=== PATIENT | male | born 1935 | race Caucasian/White ===

== ENCOUNTER 2017-10-26 07:23 | Inpatient (IN) | payer MEDICARE, BC ==
[2017-10-26] VITALS (14 sets, daily range): BP systolic 82–141; BP diastolic 52–66; PULSE 72–104; RESP 16–20; TEMP 97.9–99.2; O2SAT 93–97
[~2017-10-26] VITALS: Ht 182.9 cm; Wt 91.9 kg
[~2017-10-26 07:23] MED LIST: ALLO300T2 PO; APIX5TAB PO; ASPI-99 PO; LIPI20TA PO; LORTA5 PO; METO50CR PO
[2017-10-26] MEDS ORDERED: APIX5TAB PO (07:40)
[2017-10-26] MEDS ORDERED: ALLO100T PO (07:40)
[2017-10-26] MEDS ORDERED: ASPI-147 PO (07:40)
[2017-10-26] MEDS ORDERED: ATOR20TA15 PO (07:40)
[2017-10-26] MEDS ORDERED: METO1TAB9 PO (07:40)
[2017-10-26] MEDS ORDERED: CORICAP PO (08:02)
--- NOTE | 2017-10-26 08:25 | RADRPT ---
EXAM DATE/TIME: 10/26/2017 07:59 [place] COMPARISON: CHEST SINGLE AP, April 21, 2013, 14:33. INDICATIONS : Cough, fever, short of breath, headache, chest pains with cough MEDICAL HISTORY : None. SURGICAL HISTORY : None. ENCOUNTER: Initial ACUITY: 4 - 6 days PAIN SCORE: 8/10 LOCATION: Bilateral chest FINDINGS: There is elevation of the left hemidiaphragm which is new as compared to the prior exam. The lungs ar e clear. Heart size appears normal. Pulmonary vasculature is normal in caliber. Osseous structures ar e unremarkable. CONCLUSION: No elevation of the left hemidiaphragm. Otherwise unremarkable exam.. Vi Alfredo MD on October 26, 2017 at 8:22 Board Certified Radiologist. This report was verified electronically.
--- NOTE | 2017-10-26 08:43 | PD ---
HPI Chief Complaint: Cold / Flu Symptoms Time Seen by Provider: 08:30 Travel History International Travel<30 days: No Contact w/Intl Traveler<30days: No Traveled to known affect area: No History of Present Illness HPI 82-year-old male complains of generalized malaise and weakness, coughing congestion and wheezing. Patient states that the symptoms started 2 days ago. Patient states that he has intermittent fever for the past 2 days. Patient states that he has productive cough for the past 2 days. Patient feeling chest tightness and wheezing and shortness of breath. Patient has history of COPD. Patient states that he has been eating well. Patient has history of atrial fibrillation and on Eliquis. Patient also has history of hyperlipidemia, esophageal stricture, CAD status post stent placement. Patient states that he was feeling dizzy this morning. PFSH Past Medical History Hx Anticoagulant Therapy: Yes Atrial Fibrillation: Yes Cancer: Yes (poss left lower lung) Cardiovascular Problems: Yes High Cholesterol: Yes Diabetes: No Diminished Hearing: No Endocrine: No Gastrointestinal Disorders: Yes (reflux hx of esophageal stricture) Gout: Yes Genitourinary: No Hepatitis: Yes (A) Hiatal Hernia: No Immune Disorder: No Musculoskeletal: Yes (low back problems and arthritis) Neurologic: No Psychiatric: No Respiratory: Yes Immunizations Current: Yes Thyroid Disease: No Influenza Vaccination: Yes ?: Not Past Surgical History Body Medical Devices: cardiac stent X2 Cardiac Surgery: Yes (x2 cardiac stent) Eye Surgery: Yes (right eye cataract removal) Pacemaker: No Other Surgery: Yes (CARDIAC STENT X 2.) Social History Alcohol Use: Yes (1/DAILY) Tobacco Use: No (quit 30 years ago) Substance Use: No Allergies-Medications (Allergen,Severity, Reaction): Coded Allergies: No Known Allergies (Verified Adverse Reaction, Unknown, 10/26/17) Reported Meds & Prescriptions Reported Meds & Active Scripts Active Reported Coricidin HBP Chest Congestion (Dextromethorphan-Guaifenesin) 10-200 Mg Cap 1 Cap PO Q4H PRN Metoprolol Succinate ER 24 HR (Metoprolol Succinate) 50 Mg Tab 50 Mg PO DAILY Allopurinol 100 Mg Tab 400 Mg PO DAILY Atorvastatin (Atorvastatin Calcium) 20 Mg Tab 20 Mg PO HS Ecotrin Low Strength (Aspirin) 81 Mg Tabdr 81 Mg PO DAILY Eliquis (Apixaban) 5 Mg Tab 5 Mg PO BID Review of Systems General / Constitutional: Positive: Fever Eyes: No: Visual changes HENT: Positive: Lightheadedness, No: Headaches Cardiovascular: No: Chest Pain or Discomfort Respiratory: Positive: Cough, Shortness of Breath, Wheezing Gastrointestinal: No: Abdominal Pain Genitourinary: No: Dysuria Musculoskeletal: No: Pain Skin: No Rash Neurologic: No: Weakness Psychiatric: No: Depression Endocrine: No: Polydipsia Hematologic/Lymphatic: No: Easy Bruising Physical Exam Narrative GENERAL: Well-nourished, well-developed patient. SKIN: Focused skin assessment warm/dry. HEAD: Normocephalic. EYES: No scleral icterus. No injection or drainage. NECK: Supple, trachea midline. No JVD or lymphadenopathy. CARDIOVASCULAR: Regular rate and rhythm without murmurs, gallops, or rubs. RESPIRATORY: Breath sounds equal bilaterally. No accessory muscle use. Patient has mild to moderate expiratory wheezes bilaterally. No rhonchi. GASTROINTESTINAL: Abdomen soft, non-tender, nondistended. MUSCULOSKELETAL: No cyanosis, or edema. BACK: Nontender without obvious deformity. No CVA tenderness. Neurologic exam: Patient's awake and alert oriented 3. No obvious focal neurological deficit. Data Data Last Documented VS Vital Signs Date Time Temp Pulse Resp B/P (MAP) Pulse Ox O2 Delivery O2 Flow Rate FiO2 10/26/17 09:39 76 18 100/57 (71) 97 Room Air 10/26/17 08:52 98.7 Orders Orders Chest, Single Ap (10/26/17 ) Electrocardiogram (10/26/17 08:35) Complete Blood Count With Diff (10/26/17 08:35) Comprehensive Metabolic Panel (10/26/17 08:35) Prothrombin Time / Inr (Pt) (10/26/17 08:35) Act Partial Throm Time (Ptt) (10/26/17 08:35) Blood Culture (10/26/17 08:35) Thyroid Stimulating Hormone (10/26/17 08:35) Influenzae A/B Antigen (10/26/17 08:35) Iv Access Insert/Monitor (10/26/17 08:35) Ecg Monitoring (10/26/17 08:35) Oximetry (10/26/17 08:35) Lactic Acid (10/26/17 08:35) Sodium Chlor 0.9% 1000 Ml Inj (Ns 1000 M (10/26/17 08:45) Albuterol-Ipratropium Neb (Duoneb Neb) (10/26/17 08:45) Creatine Kinase (Cpk) (10/26/17 08:40) Troponin I (10/26/17 08:40) Labs Laboratory Tests Test 10/26/17 08:40 White Blood Count 5.7 TH/MM3 Red Blood Count 4.87 MIL/MM3 Hemoglobin 15.1 GM/DL Hematocrit 46.0 % Mean Corpuscular Volume 94.4 FL Mean Corpuscular Hemoglobin 31.1 PG Mean Corpuscular Hemoglobin Concent 33.0 % Red Cell Distribution Width 13.7 % Platelet Count 110 TH/MM3 Mean Platelet Volume 8.0 FL Neutrophils (%) (Auto) 76.4 % Lymphocytes (%) (Auto) 8.6 % Monocytes (%) (Auto) 12.1 % Eosinophils (%) (Auto) 0.1 % Basophils (%) (Auto) 2.8 % Neutrophils # (Auto) 4.3 TH/MM3 Lymphocytes # (Auto) 0.5 TH/MM3 Monocytes # (Auto) 0.7 TH/MM3 Eosinophils # (Auto) 0.0 TH/MM3 Basophils # (Auto) 0.2 TH/MM3 CBC Comment DIFF FINAL Differential Comment Prothrombin Time 12.0 SEC Prothromb Time International Ratio 1.2 RATIO Activated Partial Thromboplast Time 33.1 SEC Blood Urea Nitrogen 17 MG/DL Creatinine 1.20 MG/DL Random Glucose 89 MG/DL Total Protein 7.2 GM/DL Albumin 3.7 GM/DL Calcium Level 8.4 MG/DL Alkaline Phosphatase 57 U/L Aspartate Amino Transf (AST/SGOT) 19 U/L Alanine Aminotransferase (ALT/SGPT) 14 U/L Total Bilirubin 0.8 MG/DL Sodium Level 135 MEQ/L Potassium Level 3.9 MEQ/L Chloride Level 100 MEQ/L Carbon Dioxide Level 28.3 MEQ/L Anion Gap 7 MEQ/L Estimat Glomerular Filtration Rate 58 ML/MIN Lactic Acid Level 1.2 mmol/L Total Creatine Kinase 75 U/L Troponin I LESS THAN 0.02 NG/ML Thyroid Stimulating Hormone 3rd Gen 1.060 uIU/ML MDM Medical Decision Making Medical Screen Exam Complete: Yes Emergency Medical Condition: Yes Interpretation(s) Last Impressions Chest X-Ray 10/26/17 0000 Signed Impressions: Service Date/Time: Thursday, October 26, 2017 07:59 - CONCLUSION: No elevation of the left hemidiaphragm. Otherwise unremarkable exam.. Vi Alfredo MD 10:38 AM. CBC with platelet count of 110. WBC 5.7. 76 neutrophil. Sodium 135. GFR 58. Lactic acid 1.2. Cardiac enzymes are normal. Patient's positive for influenza A antigen Differential Diagnosis Differential diagnosis including viral syndrome, bronchitis, pneumonia, acute exacerbation COPD, sepsis. Narrative Course 82-year-old male with generalized malaise and weakness, fever, lightheadedness, coughing, congestion, shortness of breath. Tamiflu 75 mg by mouth. Vancomycin 1 g IV. Zosyn 3.375 g IV. Normal saline solution 2 L IV bolus. Normal saline solution 1 25 cc an hour. Albuterol with Atrovent unit dose treatment 2. Diagnosis Primary Impression: Sepsis Qualified Codes: A41.9 - Sepsis, unspecified organism Additional Impressions: Influenza A COPD with acute exacerbation Admitting Information Admitting Physician Requests: Admit Goyo Rome MD Oct 26, 2017 08:43
[2017-10-26] MEDS ORDERED: SODIUM CHLOR 0.9% 1000 ML INJ 1,000 ML IV ONE ×2 (08:45→10:45)
[2017-10-26 08:51] LABS: AUTOMATED NEUTROPHIL # 4.3 TH/MM3 (1.8-7.7); BASOPHIL # 0.2 TH/MM3 (0-0.2); BASOPHIL % 2.8 % (0.0-2.0); EOSINOPHIL % 0.1 % (0.0-4.0); HEMOGLOBIN 15.1 GM/DL (13.0-17.0); LYMPH % 8.6 % (9.0-44.0); LYMPHOCYTE # 0.5 TH/MM3 (1.0-4.8); MEAN CELL VOLUME 94.4 FL (80.0-100.0); MEAN CORPUSCULAR HEMOGLOBIN 31.1 PG (27.0-34.0); MONO % 12.1 % (0.0-8.0); MONOCYTE # 0.7 TH/MM3 (0-0.9); NEUT % 76.4 % (16.0-70.0); PLATELET COUNT 110 TH/MM3 (150-450); RED BLOOD COUNT 4.87 MIL/MM3 (4.50-5.90); RED CELL DISTRIBUTION WIDTH 13.7 % (11.6-17.2); WHITE BLOOD COUNT 5.7 TH/MM3 (4.0-11.0)
[2017-10-26] MEDS: RESP: ALBUTEROL 2.5 MG/IPRATROPIUM 0.5 MG NEB (SCH) INH ×2 (08:56→08:57)
[2017-10-26 09:00] LABS: CHLORIDE 100 MEQ/L (98-107); SODIUM (NA) 135 MEQ/L (136-145)
[2017-10-26 09:03] LABS: ALBUMIN 3.7 GM/DL (3.4-5.0); CALCIUM 8.4 MG/DL (8.5-10.1)
[2017-10-26 09:04] LABS: BICARBONATE 28.3 MEQ/L (21.0-32.0); BLOOD UREA NITROGEN 17 MG/DL (7-18); GLUCOSE,RANDOM 89 MG/DL (74-106); INTERNATIONAL NORMALIZED RATIO 1.2 RATIO
[2017-10-26 09:07] LABS: ALT (GPT) 14 U/L (12-78); AST (GOT) 19 U/L (15-37); GLOMERULAR FILTRATION RATE 58 ML/MIN (>89)
[2017-10-26 09:09] LABS: TOTAL BILIRUBIN ADULT 0.8 MG/DL (0.2-1.0); TOTAL PROTEIN 7.2 GM/DL (6.4-8.2)
[2017-10-26 09:10] LABS: ALKALINE PHOSPHATASE 57 U/L (45-117)
[2017-10-26 09:12] LABS: TROPONIN I LESS THAN 0.02 NG/ML (0.02-0.05)
[2017-10-26] MEDS ORDERED: VANCOMYCIN INJ 1,000 MG in SODIUM CHLOR 0.9% 250 ML INJ 250 ML IV ONE (11:00)
[2017-10-26] MEDS ORDERED: PIPERACIL-TAZO 3.375 GM PREMIX 50 ML IV ONE (11:00)
[2017-10-26] MEDS ORDERED: OSELTAMIVIR PHOSPHATE 75 MG CAP PO ONE (11:00)
[2017-10-26] MEDS: SODIUM CHLOR 0.9% 1000 ML INJ 1,000 ML IV SCH ×2 (11:19→18:22)
[2017-10-26] MEDS ORDERED: BISACODYL 10 MG SUPP RECTAL PRN (12:15)
[2017-10-26] MEDS ORDERED: SENNOSIDES 8.6 MG TAB PO PRN (12:15)
[2017-10-26] MEDS ORDERED: ONDANSETRON HCL 4 MG/2 ML VIAL IVP PRN (12:15)
[2017-10-26] MEDS ORDERED: NALOXONE HCL 0.4 MG/ML AMP IV PUSH PRN (12:15)
[2017-10-26] MEDS ORDERED: SODIUM CHLORIDE 0.9% FLUSH 10 ML FLUSH IV FLUSH PRN (12:15)
[2017-10-26] MEDS ORDERED: MAGNESIUM HYDROXIDE SUSP 30 ML CUP PO PRN (12:15)
[2017-10-26] MEDS ORDERED: ACETAMINOPHEN 325 MG TAB PO PRN (12:15)
--- NOTE | 2017-10-26 12:38 | HHI.HP ---
[facility] Luis Alfredo Keene MD Admission Diagnosis Sepsis. Influenza A. Acute exacerbation COPD. Diagnoses: Chief Complaint: Worsening shortness of breath Generalized malaise and weakness Travel History International Travel<30 Days: No Contact w/Intl Traveler <30 Da: No Traveled to Known Affected Are: No History of Present Illness This is a pleasant 82-year-old male patient with a known medical history of HIV fibrillation, hyperlipidemia, GERD, COPD who presented to the ED with complaints of worsening cough and congestion with associated generalized malaise and weakness. Patient states that his symptoms started two days ago, does admit to intermittent subjective fevers no higher than ninety-nine. Patient does admit to a productive cough with white phlegm. States that his chest is felt tight and has heard audible wheezing. He does have a history of COPD, follows with Dr. mcqueen in the outpatient setting. Denies use of nebulizer or rescue inhaler. Patient states that he did receive his flu shot this year. He does have a history of atrial fibrillation on Eliquis. PCP is Dr. Keene. Laborer Operator Dr. Otoole. He lives at home with his Review of Systems Constitutional: COMPLAINS OF: Diaphoretic episodes, Fatigue, Fever, Chills Eyes: DENIES: Blurred vision, Diplopia Respiratory: COMPLAINS OF: Cough, Sputum production, Shortness of breath Cardiovascular: DENIES: Chest pain, Palpitations Gastrointestinal: DENIES: Abdominal pain, Black stools, Bloody stools, Constipation, Diarrhea, Nausea, Vomiting Hematologic/lymphatic: DENIES: Bruising Neurologic: DENIES: Abnormal gait Psychiatric: COMPLAINS OF: Anxiety Except as stated in HPI: all other systems reviewed are Neg Past Family Social History Past Medical History Atrial fibrillation on Eliquis Hyperlipidemia GERD Gout History of hepatitis a Arthritis CAD with cardiac stent placement COPD Past Surgical History Cardiac stent placement Eyelid surgery Right cataract removal Right shoulder replacement Reported Medications Active Reported Coricidin HBP Chest Congestion (Dextromethorphan-Guaifenesin) 10-200 Mg Cap 1 Cap PO Q4H PRN Metoprolol Succinate ER 24 HR (Metoprolol Succinate) 50 Mg Tab 50 Mg PO DAILY Allopurinol 100 Mg Tab 400 Mg PO DAILY Atorvastatin (Atorvastatin Calcium) 20 Mg Tab 20 Mg PO HS Ecotrin Low Strength (Aspirin) 81 Mg Tabdr 81 Mg PO DAILY Eliquis (Apixaban) 5 Mg Tab 5 Mg PO BID Allergies: Coded Allergies: No Known Allergies (Verified Allergy, Unknown, 10/26/17) Active Ordered Medications Current Medications Medications (Trade) Dose Ordered Sig/Dayna Route Start Time Stop Time Status Last Admin Sodium Chloride 1,000 ml @ 125 mls/hr Q8H IV 10/26/17 11:00 10/26/17 11:19 (NS Flush) 2 ml UNSCH PRN IV FLUSH 10/26/17 12:15 (NS Flush) 2 ml BID IV FLUSH 10/26/17 21:00 (Tylenol) 650 mg Q4H PRN PO 10/26/17 12:15 (Zofran Inj) 4 mg Q6H PRN IVP 10/26/17 12:15 (Narcan Inj) 0.4 mg UNSCH PRN IV PUSH 10/26/17 12:15 (Angela-Colace) 1 tab BID PO 10/26/17 21:00 (Milk Of Magnesia Liq) 30 ml Q12H PRN PO 10/26/17 12:15 (Senokot) 17.2 mg Q12H PRN PO 10/26/17 12:15 (Dulcolax Supp) 10 mg DAILY PRN RECTAL 10/26/17 12:15 Family History Maternal medical history significant for brain aneurysm. Paternal medical history significant for CAD and RI. Social History Denies any current tobacco use, states he quit over thirty years ago. Patient does admit to drinking alcohol 2-3 times per week. Denies any illicit drug use. Physical Exam Vital Signs Vital Signs Date Time Temp Pulse Resp B/P (MAP) Pulse Ox O2 Delivery O2 Flow Rate FiO2 10/26/17 11:45 74 18 109/63 (78) 97 10/26/17 11:15 77 18 104/60 (75) 95 Nasal Cannula 2.00 10/26/17 10:45 92/55 (67) 10/26/17 10:15 82 18 84/52 (63) 97 Room Air 10/26/17 09:39 76 18 100/57 (71) 97 Room Air 10/26/17 09:39 76 10/26/17 08:52 98.7 72 18 82/54 (63) 94 Room Air 10/26/17 08:03 79 18 84/52 (63) 93 Room Air 10/26/17 07:40 Room Air 10/26/17 07:26 99.2 81 16 139/64 (89) 94 Physical Exam GENERAL: Well-nourished, well-developed elderly male patient in NAD. On supplemental O2 SKIN: Warm and dry. No rash. HEAD: Normocephalic. Atraumatic. EYES: Pupils equal and round. No scleral icterus. No injection or drainage. ENT: No nasal bleeding or discharge. Mucous membranes pink and moist. NECK: Supple. Trachea midline. CARDIOVASCULAR: Regular rate and rhythm. S1, S2 noted. No murmur appreciated. RESPIRATORY: No accessory muscle use. Diffuse expiratory wheezing. Breath sounds equal bilaterally. GASTROINTESTINAL: Abdomen soft, non-tender, nondistended. Normoactive bowel sounds x4. MUSCULOSKELETAL: No obvious deformities. Extremities without clubbing, cyanosis , or edema. NEUROLOGICAL: Awake and alert. No obvious cranial nerve deficits. Motor grossly within normal limits. 5/5 muscle strength in bilateral upper and lower extremities. Normal speech. PSYCHIATRIC: Appropriate mood and affect; insight and judgment normal. Laboratory Laboratory Tests Test 10/26/17 08:40 White Blood Count 5.7 Red Blood Count 4.87 Hemoglobin 15.1 Hematocrit 46.0 Mean Corpuscular Volume 94.4 Mean Corpuscular Hemoglobin 31.1 Mean Corpuscular Hemoglobin Concent 33.0 Red Cell Distribution Width 13.7 Platelet Count 110 Mean Platelet Volume 8.0 Neutrophils (%) (Auto) 76.4 Lymphocytes (%) (Auto) 8.6 Monocytes (%) (Auto) 12.1 Eosinophils (%) (Auto) 0.1 Basophils (%) (Auto) 2.8 Neutrophils # (Auto) 4.3 Lymphocytes # (Auto) 0.5 Monocytes # (Auto) 0.7 Eosinophils # (Auto) 0.0 Basophils # (Auto) 0.2 CBC Comment DIFF FINAL Differential Comment Prothrombin Time 12.0 Prothromb Time International Ratio 1.2 Activated Partial Thromboplast Time 33.1 Blood Urea Nitrogen 17 Creatinine 1.20 Random Glucose 89 Total Protein 7.2 Albumin 3.7 Calcium Level 8.4 Alkaline Phosphatase 57 Aspartate Amino Transf (AST/SGOT) 19 Alanine Aminotransferase (ALT/SGPT) 14 Total Bilirubin 0.8 Sodium Level 135 Potassium Level 3.9 Chloride Level 100 Carbon Dioxide Level 28.3 Anion Gap 7 Estimat Glomerular Filtration Rate 58 Lactic Acid Level 1.2 Total Creatine Kinase 75 Troponin I LESS THAN 0.02 Thyroid Stimulating Hormone 3rd Gen 1.060 Date/Time Source Procedure Growth Status 10/26/17 08:40 Blood Peripheral Aerobic Blood Culture Pending Received 10/26/17 08:40 Blood Peripheral Anaerobic Blood Culture Pending Received 10/26/17 08:45 Nasal Washing Influenza Types A,B Antigen (RAQUEL) - Final Positive For Flu A Antigen Complete Result Diagram: 10/26/1740 10/26/1740 Imaging Last Impressions Chest X-Ray 10/26/17 0000 Signed Impressions: Service Date/Time: Thursday, October 26, 2017 07:59 - CONCLUSION: No elevation of the left hemidiaphragm. Otherwise unremarkable exam.. Vi Alfredo MD Septic Shock Reassessment Septic shock perfusion: reassessment completed Caprini VTE Risk Assessment Caprini VTE Risk Assessment: Mod/High Risk (score >= 2) Caprini Risk Assessment Model Point Value = 1 Point Value = 2 Point Value = 3 Point Value = 5 Age 41-60 Minor surgery BMI > 25 kg/m2 Swollen legs Varicose veins or History of unexplained or recurrent spontaneous Oral contraceptives or hormone replacement Sepsis (< 1 month) Serious lung disease, including pneumonia (< 1 month) Abnormal pulmonary function Acute myocardial infarction Congestive heart failure (< 1 month) History of inflammatory bowel disease Medical patient at bed rest Age 61-74 Arthroscopic surgery Major open surgery (> 45 min) Laparoscopic surgery (> 45 min) Malignancy Confined to bed (> 72 hours) Immobilizing plaster cast Central venous access Age >= 75 History of VTE Family history of VTE Factor V Leiden Prothrombin [id number] Lupus anticoagulant Anticardiolipin antibodies Elevated serum homocysteine Heparin-induced thrombocytopenia Other congenital or acquired thrombophilia Stroke (< 1 month) Elective arthroplasty Hip, pelvis, or leg fracture Acute spinal cord injury (< 1 month) Prophylaxis Regimen Total Risk Factor Score Risk Level Prophylaxis Regimen 0-1 Low Early ambulation 2 Moderate Order ONE of the following: *Sequential Compression Device (SCD) *Heparin 5000 units SQ BID 3-4 Higher Order ONE of the following medications: *Heparin 5000 units SQ TID *Enoxaparin/Lovenox 40 mg SQ daily (WT < 150 kg, CrCl > 30 mL/min) *Enoxaparin/Lovenox 30 mg SQ daily (WT < 150 kg, CrCl > 10-29 mL/min) *Enoxaparin/Lovenox 30 mg SQ BID (WT < 150 kg, CrCl > 30 mL/min) AND/OR *Sequential Compression Device (SCD) 5 or more Highest Order ONE of the following medications: *Heparin 5000 units SQ TID (Preferred with Epidurals) *Enoxaparin/Lovenox 40 mg SQ daily (WT < 150 kg, CrCl > 30 mL/min) *Enoxaparin/Lovenox 30 mg SQ daily (WT < 150 kg, CrCl > 10-29 mL/min) *Enoxaparin/Lovenox 30 mg SQ BID (WT < 150 kg, CrCl > 30 mL/min) AND *Sequential Compression Device (SCD) Assessment and Plan Assessment and Plan This is a pleasant 82-year-old male patient with a known medical history of HIV fibrillation, hyperlipidemia, GERD, COPD who presented to the ED with complaints of worsening cough and congestion with associated generalized malaise and weakness. Influenza A Possible COPD exacerbation With associated productive cough, generalized malaise and weakness, expiratory wheezing. Does not meet sepsis criteria. Afebrile. No leukocytosis. Lactic acid 1.2. CBC and BMP reviewed essentially unremarkable. Nasal washing positive for influenza A antigen. Chest x-ray reviewed showing no elevation of the left hemidiaphragm. Unremarkable exam. Blood cultures have been drawn and pending. Continue to follow growth. Was given vancomycin in the ED. Patient does not appear to be septic, continue to monitor. Was also given Tamiflu. Continue. Will draw labs in a.m. Continue IV fluids. Status post 2 L NS bolus in ED. Supplemental O2 as needed. Will place on IV steroids for expiratory wheezing. Duo nebs as needed and scheduled. Hypotension likely secondary to above versus dehydration Blood pressure on presentation was systolic in the 80s. Now has normalized in the 110's. Will continue to follow BP trends. CAD with cardiac stent placement: Continue home aspirin. And beta ken. Atrial fibrillation, chronic: Continue Eliquis. Monitor on school lunch monitor, monitor for any arrhythmias. Hyperlipidemia, chronic: Continue atorvastatin. DVT prophylaxis: SCDs. Eliquis. Physician Certification 2 Midnight Certification Type: Admission for Inpatient Services Order for Inpatient Services The services are ordered in accordance with Medicare regulations or non- Medicare payer requirements, as applicable. In the case of services not specified as inpatient-only, they are appropriately provided as inpatient services in accordance with the 2-midnight benchmark. Estimated LOS (days): 3 3 days is the estimated time the patient will need to remain in the hospital, assuming treatment plan goals are met and no additional complications. Post-Hospital Plan: Not yet determined Maria Dolores Grimaldo Oct 26, 2017 12:38
[2017-10-26] MEDS ORDERED: RESP: ALBUTEROL 2.5 MG/IPRATROPIUM 0.5 MG NEB (PRN) NEB (12:45)
[2017-10-26] MEDS: RESP: ALBUTEROL 2.5 MG/IPRATROPIUM 0.5 MG NEB (SCH) NEB ×2 (13:33→19:18)
[2017-10-26] MEDS: methylPREDNISolone SOD SUCC 40 MG/1 ML VIAL IV PUSH SCH ×2 (13:42→21:06)
[2017-10-26] MEDS ORDERED: ATORVASTATIN 20 MG TAB PO SCH (21:00)
[2017-10-26] MEDS: SODIUM CHLORIDE 0.9% FLUSH 10 ML FLUSH IV FLUSH SCH (21:00)
[2017-10-26] MEDS: APIXABAN 5 MG TABLET PO SCH (21:05)
[2017-10-26] MEDS: DOCUSATE SODIUM 50 MG/SENNA 8.6 MG TAB PO SCH (21:05)
[2017-10-26] MEDS: OSELTAMIVIR PHOSPHATE 75 MG CAP PO SCH (21:05)
[2017-10-27 00:04] VITALS: BP 104/70; PULSE 114; RESP 20; TEMP 98.9; O2SAT 93
[2017-10-27] MEDS: SODIUM CHLOR 0.9% 1000 ML INJ 1,000 ML IV SCH ×2 (02:30→11:00)
[2017-10-27 04:58] VITALS: BP 108/73; PULSE 89; RESP 22; TEMP 98.9; O2SAT 94
[2017-10-27] MEDS: methylPREDNISolone SOD SUCC 40 MG/1 ML VIAL IV PUSH SCH (05:45)
[2017-10-27] MEDS: BENZOCAINE 6 MG/MENTHOL 10 MG LOZENGE BUCCAL PRN ×2 (06:19→10:38)
[2017-10-27 06:43] LABS: AUTOMATED NEUTROPHIL # 3.1 TH/MM3 (1.8-7.7); BASOPHIL % 0.1 % (0.0-2.0); HEMATOCRIT 40.1 % (39.0-51.0); HEMOGLOBIN 13.4 GM/DL (13.0-17.0); LYMPH % 10.2 % (9.0-44.0); LYMPHOCYTE # 0.4 TH/MM3 (1.0-4.8); MEAN CELL VOLUME 95.7 FL (80.0-100.0); MEAN CORPUSCULAR HEMOGLOBIN 31.9 PG (27.0-34.0); MEAN CORPUSCULAR HGB CONC 33.3 % (32.0-36.0); MEAN PLATELET VOLUME 8.1 FL (7.0-11.0); MONO % 4.9 % (0.0-8.0); MONOCYTE # 0.2 TH/MM3 (0-0.9); NEUT % 84.8 % (16.0-70.0); PLATELET COUNT 90 TH/MM3 (150-450); RED BLOOD COUNT 4.19 MIL/MM3 (4.50-5.90); RED CELL DISTRIBUTION WIDTH 13.6 % (11.6-17.2); WHITE BLOOD COUNT 3.7 TH/MM3 (4.0-11.0)
[2017-10-27 07:22] LABS: CALCIUM 8.1 MG/DL (8.5-10.1)
[2017-10-27 07:23] LABS: BICARBONATE 28.5 MEQ/L (21.0-32.0)
[2017-10-27 07:26] LABS: CREATININE 0.81 MG/DL (0.60-1.30)
[2017-10-27] MEDS: RESP: ALBUTEROL 2.5 MG/IPRATROPIUM 0.5 MG NEB (SCH) NEB (07:48)
[2017-10-27 07:51] VITALS: O2SAT 92
[2017-10-27 08:00] VITALS: BP 104/93; PULSE 82; RESP 16; TEMP 96.6; O2SAT 93
[2017-10-27 08:10] VITALS: PULSE 88
[2017-10-27] MEDS: APIXABAN 5 MG TABLET PO SCH (08:28)
[2017-10-27] MEDS: DOCUSATE SODIUM 50 MG/SENNA 8.6 MG TAB PO SCH (08:28)
[2017-10-27] MEDS: OSELTAMIVIR PHOSPHATE 75 MG CAP PO SCH (08:28)
[2017-10-27] MEDS: SODIUM CHLORIDE 0.9% FLUSH 10 ML FLUSH IV FLUSH SCH (08:30)
[2017-10-27] MEDS ORDERED: ASPIRIN EC 81 MG TABEC PO SCH (09:00)
[2017-10-27] MEDS ORDERED: ALLOPURINOL 100 MG TAB PO SCH (09:00)
--- NOTE | 2017-10-27 10:51 | HHI.PR ---
Subjective Remarks Follow-up influenza. Patient seen and examined, sitting on side of bed on room air completely comfortable with no accessory muscle use or shortness of breath. Patient states he feels much improved. Slept well overnight. All symptoms have improved. Able to ambulate without dyspnea. Afebrile overnight vital signs are stable. Plan will be to discharge home today on Tamiflu and antibiotics and steroids. Objective Vitals Vital Signs Date Time Temp Pulse Resp B/P (MAP) Pulse Ox O2 Delivery O2 Flow Rate FiO2 10/27/17 08:00 96.6 82 16 104/93 (97) 93 10/27/17 07:51 92 21 10/27/17 04:58 98.9 89 22 108/73 (85) 94 10/27/17 00:04 98.9 114 20 104/70 (81) 93 10/26/17 21:23 97.9 104 18 141/66 (91) 97 10/26/17 20:00 90 10/26/17 19:19 94 21 10/26/17 16:01 75 10/26/17 15:15 98.9 86 20 124/60 (81) 93 10/26/17 14:41 86 18 105/65 (78) 97 Nasal Cannula 2.00 10/26/17 11:45 74 18 109/63 (78) 97 10/26/17 11:15 77 18 104/60 (75) 95 Nasal Cannula 2.00 I/O 10/26/17 10/26/17 10/26/17 10/27/17 10/27/17 10/27/17 07:00 15:00 23:00 07:00 15:00 23:00 Intake Total 2410 ml 850 ml Balance 2410 ml 850 ml Intake Oral 160 ml IV Total 2250 ml 850 ml # Voids 2 3 # Bowel Movements 0 Result Diagram: 10/27/17 0618 10/27/17 0618 Imaging Last Impressions Chest X-Ray 10/26/17 0000 Signed Impressions: Service Date/Time: Thursday, October 26, 2017 07:59 - CONCLUSION: No elevation of the left hemidiaphragm. Otherwise unremarkable exam.. Vi Alfredo MD Objective Remarks GENERAL: Well-nourished, well-developed elderly male patient in [facility]. Comfortable on room air. SKIN: Warm and dry. No rash. HEAD: Normocephalic. Atraumatic. EYES: Pupils equal and round. No scleral icterus. No injection or drainage. ENT: No nasal bleeding or discharge. Mucous membranes pink and moist. NECK: Supple. Trachea midline. CARDIOVASCULAR: Regular rate and rhythm. S1, S2 noted. No murmur appreciated. RESPIRATORY: No accessory muscle use. Mild expiratory wheezing and lower posterior bases. Breath sounds equal bilaterally. GASTROINTESTINAL: Abdomen soft, non-tender, nondistended. Normoactive bowel sounds x4. MUSCULOSKELETAL: No obvious deformities. Extremities without clubbing, cyanosis , or edema. NEUROLOGICAL: Awake and alert. No obvious cranial nerve deficits. Motor grossly within normal limits. 5/5 muscle strength in bilateral upper and lower extremities. Normal speech. PSYCHIATRIC: Appropriate mood and affect; insight and judgment normal. A/P Assessment and Plan This is a pleasant 82-year-old male patient with a known medical history of HIV fibrillation, hyperlipidemia, GERD, COPD who presented to the ED with complaints of worsening cough and congestion with associated generalized malaise and weakness. Influenza A Possible COPD exacerbation With associated productive cough, generalized malaise and weakness, expiratory wheezing. All improved. Does not meet sepsis criteria. Afebrile. No leukocytosis. Lactic acid 1.2. CBC and BMP reviewed essentially unremarkable. Nasal washing positive for influenza A antigen. Chest x-ray reviewed showing no elevation of the left hemidiaphragm. Unremarkable exam. Blood cultures have been drawn, NGTD. Continue to follow growth. Was given vancomycin in the ED. Patient does not appear to be septic, continue to monitor. Started on Azithromycin. Was also given Tamiflu. Continue on DC. Labs unremarkable today. Continue steroid dose pack on dc. Duo nebs as needed and scheduled while in hospital. Hypotension likely secondary to above versus dehydration Improved. BP now normal. CAD with cardiac stent placement: Continue home aspirin. And beta ken. Atrial fibrillation, chronic: Continue Eliquis. Monitor on teletypesetter monitor, monitor for any arrhythmias. Hyperlipidemia, chronic: Continue atorvastatin. DVT prophylaxis: SCDs. Eliquis. Discharge Planning DC today. Maria Dolores Grimaldo Oct 27, 2017 10:51
--- NOTE | 2017-10-27 10:52 | HHI.DS ---
Discharge Summary Admission Date Oct 26, 2017 at 11:11 Admitting Diagnosis Sepsis. Influenza A. Acute exacerbation COPD. Brief History - From Admission This is a pleasant 82-year-old male patient with a known medical history of HIV fibrillation, hyperlipidemia, GERD, COPD who presented to the ED with complaints of worsening cough and congestion with associated generalized malaise and weakness. Patient states that his symptoms started two days ago, does admit to intermittent subjective fevers no higher than ninety-nine. Patient does admit to a productive cough with white phlegm. States that his chest is felt tight and has heard audible wheezing. He does have a history of COPD, follows with Dr. mcqueen in the outpatient setting. Denies use of nebulizer or rescue inhaler. Patient states that he did receive his flu shot this year. He does have a history of atrial fibrillation on Eliquis. PCP is Dr. Keene. [employer] Detective Dr. Otoole. He lives at home with his CBC/BMP: 10/27/17 0618 10/27/17 0618 Significant Findings Laboratory Tests Test 10/26/17 08:40 10/26/17 13:15 10/27/17 06:18 Platelet Count 110 TH/MM3 (150-450) 90 TH/MM3 (150-450) Neutrophils (%) (Auto) 76.4 % (16.0-70.0) 84.8 % (16.0-70.0) Lymphocytes (%) (Auto) 8.6 % (9.0-44.0) Monocytes (%) (Auto) 12.1 % (0.0-8.0) Basophils (%) (Auto) 2.8 % (0.0-2.0) Lymphocytes # (Auto) 0.5 TH/MM3 (1.0-4.8) 0.4 TH/MM3 (1.0-4.8) Prothrombin Time 12.0 SEC (9.8-11.6) Activated Partial Thromboplast Time 33.1 SEC (24.3-30.1) Calcium Level 8.4 MG/DL (8.5-10.1) 8.1 MG/DL (8.5-10.1) Sodium Level 135 MEQ/L (136-145) Estimat Glomerular Filtration Rate 58 ML/MIN (>89) Troponin I LESS THAN 0.02 NG/ML Procalcitonin 0.23 ng/mL (0.00-0.08) White Blood Count 3.7 TH/MM3 (4.0-11.0) Red Blood Count 4.19 MIL/MM3 (4.50-5.90) Platelet Estimate LOW (NORMAL) Random Glucose 139 MG/DL (74-106) Maria Dolores Grimaldo [facility] Oct 27, 2017 10:52
--- NOTE | 2017-10-27 10:52 | HHI.DCPOC ---
Discharge Care Plan Diagnosis: (1) Sepsis (2) COPD with acute exacerbation (3) Influenza A Goals to Promote Your Health * To prevent worsening of your condition and complications * To maintain your health at the optimal level Directions to Meet Your Goals Take your medications as prescribed Follow your dietary instruction Follow activity as directed Keep your appointments as scheduled Take your immunizations and boosters as scheduled If your symptoms worsen call your PCP, if no PCP go to Urgent Care Center or Emergency Room Smoking is Dangerous to Your Health. Avoid second hand smoke Call the 24-hour hour crisis hotline for domestic abuse at Maria Dolores Grimaldo Oct 27, 2017 10:52
[2017-10-27] MEDS ORDERED: PRED10PA PO (10:54)
[2017-10-27] MEDS ORDERED: AZIT500T2 PO (10:54)
[2017-10-27] MEDS ORDERED: OSEL75 PO (10:54)
[2017-10-27 12:00] VITALS: BP 115/70; PULSE 88; RESP 16; TEMP 97.1; O2SAT 94
--- NOTE | 2017-10-27 17:45 | EKG ---
Date Performed: 10/26/2017 Time Performed: 08:45:38 PTAGE: 82 years EKG: ATRIAL FIBRILLATION ABNORMAL RHYTHM ECG PREVIOUS TRACING : 04/19/2013 06.59 Since the prior tracing, there has been no significant [place] DOCTOR: Jan Castro Interpretating Date/Time 10/27/2017 17:43:42
== END 2017-10-27 13:03 | disposition home or self-care (01) | DRG 194 ==
LOC: PHED 07:23 → PHEDA 11:11 → PH3A 14:53
PROVIDERS: ADMIT Hospitalist; ATTEND Hospitalist
DX: J10.1 Influenza due to other identified influenza virus with other respiratory manifestations (principal); J44.1 Chronic obstructive pulmonary disease with (acute) exacerbation; I95.9 Hypotension, unspecified; I48.2 Chronic atrial fibrillation; Z79.82 Long term (current) use of aspirin; Z79.02 Long term (current) use of antithrombotics/antiplatelets; I25.10 Atherosclerotic heart disease of native coronary artery without angina pectoris; Z95.5 Presence of coronary angioplasty implant and graft; E78.5 Hyperlipidemia, unspecified; Z87.891 Personal history of nicotine dependence
CPT/HCPCS: 71045; 80048; 80053; 82550; 83605; 84145; 84443; 84484; 85025; 85610; 85730; 87040; 87804; 93005; 94640; 94664; 96361; 96374; J2920; J3370; J7030; J7050